=== PATIENT | male | born 1980 | race Caucasian/White ===

== ENCOUNTER 2018-09-09 14:05 | Emergency (ER) | payer OTHER ==
[~2018-09-09] VITALS: Ht 165.1 cm; Wt 108.9 kg
[2018-09-09] MEDS ORDERED: Norco 5-325 Ta1 EACH PO (16:29)
[2018-09-09] MEDS ORDERED: ONDA4ODT MM (16:29)
== END 2018-09-09 17:30 | disposition home or self-care (01) ==
LOC: ER 14:05
DX: S82.52XA Displaced fracture of medial malleolus of left tibia, initial encounter for closed fracture (principal); S82.452A Displaced comminuted fracture of shaft of left fibula, initial encounter for closed fracture; J45.909 Unspecified asthma, uncomplicated; Z88.2 Allergy status to sulfonamides; Z88.5 Allergy status to narcotic agent; Z88.1 Allergy status to other antibiotic agents; Z91.048 Other nonmedicinal substance allergy status; W19.XXXA Unspecified fall, initial encounter; Y93.01 Activity, walking, marching and hiking
CPT/HCPCS: 27818; 73600; 96361-59; 96374-59; 96375-59; 99283-25; J1170; J2405; J2704; J7030